=== PATIENT | female | born 1985 | race Two or more races ===

== ENCOUNTER 2017-11-17 11:03 | Emergency (ER) | payer OTHER ==
--- NOTE | 2017-11-17 11:37 | CPEKG ---
Heart Rate: 100 RR Interval: 600 P-R Interval: 124 QRSD Interval: 82 QT Interval: 340 QTC Interval: 439 P Sherwood: 66 QRS Sherwood: 20 T Wave Sherwood: -23 EKG Severity - ABNORMAL ECG - EKG Impression: SINUS TACHYCARDIA EKG Impression: NONSPECIFIC T ABNORMALITIES, INFERIOR LEADS Electronically Signed By: Maxwell Vizcarra 17-Nov-2017 15:47:41
[2017-11-17 12:02] LABS: PLATELET COUNT 371 10^3/uL (150-400)
[2017-11-17] MEDS ORDERED: HYOSCYAMINE SULFATE 0.125 MG TAB PO ONE (12:32)
[2017-11-17] MEDS ORDERED: LIDOCAINE 2% VISCOUS 15 ML UDCUP PO ONE (12:32)
[2017-11-17] MEDS ORDERED: MAG HYDROX/AL HYDROX/SIMETH 30 ML UDCUP PO ONE (12:32)
[2017-11-17] MEDS ORDERED: NS 1,000 ML IV ONE (13:14)
--- NOTE | 2017-11-17 13:20 | EDPHY ---
H & P Time Seen by Provider: 11/17/17 13:03 HPI/ROS: Chief complaint. Chest pressure, shortness of breath HPI. 32-year-old female flu from [place] 4 days ago. Yesterday she developed tightness in her chest and some shortness of breath. She has burping. Symptoms began last night about 10:00 p.m.. She also has a lump in her throat. No fever cough. No change in her discomfort with breathing, exertion, position. No leg symptoms. She has a history of mitral regurgitation is under care of maintenance supervisor mechanical and was getting Q 4 month echo does which have been stable. ROS Constitutional. no fever/chills, no weakness Eyes. no problems with vision ENT. no sore throat, no nasal drainage Cardiovascular. Chest pressure Respiratory. Shortness of breath Abdominal. no abdominal pain, no nausea/vomiting, no diarrhea; burping . no problems urinating MS. no calf pain/swelling, no neck/back pain, no joint pain Skin. no rash Lymph. no swollen glands Neuro. no headache, no dizziness, no difficulty walking or with speech Past Medical/Surgical History: Mitral regurgitation with , hypertension Social History: , nonsmoker, no alcohol Smoking Status: Never smoked Physical Exam: General Appearance: Alert well-developed female mild distress vital signs significant for persistent heart rate of 120 Eyes: Pupils equal and round no pallor or injection. ENT, Mouth: Mucous membranes are moist. Respiratory: There are no retractions, lungs are clear to auscultation. Cardiovascular: Regular rate and rhythm. Tachycardia Gastrointestinal: Abdomen is soft and nontender, no masses, bowel sounds normal. Neurological: Awake and alert, sensory and motor exams grossly normal. Skin: Warm and dry, no rashes. Musculoskeletal: Neck is supple nontender. Extremities symmetrical, full range of motion. Psychiatric: Patient is oriented X 3, there is no agitation. Constitutional: Initial Vital Signs Temperature (C) 36.7 C 11/17/17 11:08 Heart Rate 120 H 11/17/17 11:08 Respiratory Rate 20 11/17/17 11:08 Blood Pressure 145/88 H 11/17/17 11:08 O2 Sat (%) 97 11/17/17 11:08 O2 Delivery Mode Room Air Allergies/Adverse Reactions: No Known Allergies Allergy (Unverified 11/17/17 11:07) Home Medications: Medication Instructions Recorded Hydrochlorothiazide 11/17/17 Telmisartan 11/17/17 Medical Decision Making - Diagnostics EKG Interpretation: EKG interpreted by me shows sinus tachycardia normal axis. QRS is normal. Inferior T-wave flattening. No arrhythmia. Rate is 100 Imaging Results: Imaging Impressions Chest X-Ray 11/17/17 11:37 Impression: No acute findings in the chest. CT angiogram chest is normal. Incidental finding 1.5 cm right breast nodule needing further workup Procedures: IV normal saline monitor. 1 L saline ED Course/Re-evaluation: Re-evaluation 2:30 p.m.. Patient's heart rate is now 90 . Patient is without symptoms. Patient and I discussed imaging and lab results. We discussed treatment plan including criteria for return importance of follow-up and further evaluation. She expresses understanding and agreement Differential Diagnosis: I considered pneumonia, pneumothorax, pulmonary embolus because of travel. I considered acute coronary syndrome. - Data Points Laboratory Results: Laboratory Results 11/17/17 11:47 11/17/17 11:47 11/17/17 11/17/17 11/17/17 13:23 11:47 11:47 WBC RBC Hgb Hct MCV MCH MCHC RDW Plt Count MPV Neut % (Auto) Lymph % (Auto) [place] % (Auto) Eos % (Auto) Baso % (Auto) Nucleat RBC Rel Count Absolute Neuts (auto) Absolute Lymphs (auto) Absolute Monos (auto) Absolute Eos (auto) Absolute Basos (auto) Absolute Nucleated RBC Immature Gran % Immature Gran # D-Dimer < 0.27 ug/mLFEU ug/mLFEU (0.00-0.50) Sodium 141 mEq/L mEq/L (135-145) Potassium 4.4 mEq/L mEq/L (3.3-5.0) Chloride 99 mEq/L mEq/L (97-110) Carbon Dioxide 28 mEq/l mEq/l (22-31) Anion Gap 14 mEq/L mEq/L (8-16) BUN 12 mg/dL mg/dL (7-23) Creatinine 0.6 mg/dL mg/dL (0.6-1.0) Estimated GFR > 60 Glucose 115 mg/dL H mg/dL (70-100) Calcium 10.5 mg/dL H mg/dL (8.5-10.4) Troponin I < 0.012 ng/mL ng/mL (0.000-0.034) Beta HCG, Qual NEGATIVE 11/17/17 11:47 WBC 9.98 10^3/uL H 10^3/uL (3.80-9.50) RBC 5.54 10^6/uL H 10^6/uL (4.18-5.33) Hgb 14.8 g/dL g/dL (12.6-16.3) Hct 45.5 % % (38.0-47.0) MCV 82.1 fL fL (81.5-99.8) MCH 26.7 pg L pg (27.9-34.1) MCHC 32.5 g/dL g/dL (32.4-36.7) RDW 15.1 % % (11.5-15.2) Plt Count 371 10^3/uL 10^3/uL (150-400) MPV 9.5 fL fL (8.7-11.7) Neut % (Auto) 71.5 % % (39.3-74.2) Lymph % (Auto) 20.7 % % (15.0-45.0) [place] % (Auto) 7.1 % % (4.5-13.0) Eos % (Auto) 0.1 % L % (0.6-7.6) Baso % (Auto) 0.2 % L % (0.3-1.7) Nucleat RBC Rel Count 0.0 % % (0.0-0.2) Absolute Neuts (auto) 7.13 10^3/uL H 10^3/uL (1.70-6.50) Absolute Lymphs (auto) 2.07 10^3/uL 10^3/uL (1.00-3.00) Absolute Monos (auto) 0.71 10^3/uL 10^3/uL (0.30-0.80) Absolute Eos (auto) 0.01 10^3/uL L 10^3/uL (0.03-0.40) Absolute Basos (auto) 0.02 10^3/uL 10^3/uL (0.02-0.10) Absolute Nucleated RBC 0.00 10^3/uL 10^3/uL (0-0.01) Immature Gran % 0.4 % % (0.0-1.1) Immature Gran # 0.04 10^3/uL 10^3/uL (0.00-0.10) D-Dimer Sodium Potassium Chloride Carbon Dioxide Anion Gap BUN Creatinine Estimated GFR Glucose Calcium Troponin I Beta HCG, Qual Medications Given: Discontinued Medications Al Hydroxide/Mg Hydroxide (Maalox Susp) 30 ml PO ONCE ONE Stop: 11/17/17 12:33 Last Admin: 11/17/17 12:49 Dose: 30 ml Hyoscyamine Sulfate (Levsin, Hyomax-Sl) 0.25 mg PO ONCE ONE Stop: 11/17/17 12:33 Last Admin: 11/17/17 12:49 Dose: 0.25 mg Sodium Chloride (Ns) 1,000 mls @ 0 mls/hr IV ONCE ONE; Wide Open PRN Reason: Protocol Stop: 11/17/17 13:15 Last Admin: 11/17/17 13:26 Dose: 1,000 mls Lidocaine (Lidocaine 2% Viscous) 15 ml PO ONCE ONE Stop: 11/17/17 12:33 Last Admin: 11/17/17 12:49 Dose: 15 ml Departure - Departure Disposition: Home, Routine, Self-Care Clinical Impression: Chest pain Qualifiers: Chest pain type: unspecified Qualified Code(s): R07.9 - Chest pain, unspecified Condition: Good Instructions: Chest Pain (ED) Additional Instructions: You have incidental finding of a 1.5 cm nodule in your right breast that requires mammogram and further evaluation. Otherwise normal activity and continue regular medications. Follow up with your regular physician upon return to [facility]. Referrals: NONE *PRIMARY CARE P,. [Primary Care Provider] - As per Instructions
[2017-11-17] MEDS ORDERED: IOPAMIDOL (ISOVUE 370) 100 ML BTL IV ONE (13:35)
[2017-11-17 14:50] VITALS: BP 137/78
== END 2017-11-17 14:50 | disposition home or self-care (01) ==
DX: R07.9 Chest pain, unspecified (principal); I10 Essential (primary) hypertension; E86.9 Volume depletion, unspecified
CPT/HCPCS: Q9967